=== PATIENT | female | born 1955 | race Caucasian/White ===

== ENCOUNTER 2024-10-17 08:15 | Outpatient (CLI) | payer MEDICARE, SELFPAY ==
--- OUTSIDE RECORDS SUMMARY | 2023-09-07 06:15 | XMS_ITS ---
Author Organization Ash Address 1210 [facility] [address] [place] [id number] Care Team Providers Care Insurance Claims Processor Name Role Phone Paul Whitman Unavailable [phone] Allergies No Known Allergies REASON FOR VISIT refills, to get established Medications Medication SIG (Take, Route, Frequency, Duration) Notes Start Date End Date Status Atorvastatin Calcium 40 MG 1 tablet Oral ly Once a day Active Losartan Potassium-HCTZ 50-12.5 MG 1 tablet Orally Once a day Active Omeprazole 20 MG 1 capsule 30 minutes before morning meal Orally Once a day as needed Active Problems Problem Type SNOMED Code ICD Code Onset Dates Problem Status W/U Status Risk Notes Problem Essential hypertension (18222359) Essential hypertension (I10) Active confirmed Problem Mixed hyperlipidemia (476532872) Mixed hyperlipidemia (E78.2) Active confirmed Problem Gastroesophageal reflux disease (193761944) Gastroesophageal reflux disease, unspecified whether esophagitis present (K21.9) Active confirmed Vital Signs Weight 161.8 lbs 09/07/2023 Blood pressure systolic 142 mm Hg 09/07/19 24 Blood pressure diastolic 80 mm Hg 024 Heart Rate 70 /min 09/07/2023 Height 63 in 09/07/2023 BMI 28.66 kg/m2 09/07/2023 Encounters Encounter Location Date Provider Diagnosis [place] [address] [place] [address] [place] [id number] 09/07/2023 Paul Whitman Essential hypertensi on I10 ; Mixed hyperlipidemia E78.2 and Gastroesophageal reflux disease, unspecified whether esophagitis present K21.9 Assessments Encounter Date Diagnosis (ICD Code) Assessment Notes Treatment Notes Treatment Clinical Notes Section Notes 09/07/2023 Essential hypertension (ICD-10 - I10) 09/07/2023 Mixed hyperlipidemia (ICD-10 - E78.2) 09/07/2023 Gastroesophageal reflux disease, unspecified whether esophagitis present (ICD-10 - K21.9) 09/07/2023 Other Patient needs fasting labs in the next few weeks: CMP, TSH w/ reflex, Lipid, Urine Microalbumin Plan Of Treatment Medication Medication Name Sig Start Date Stop Date Notes Atorvastatin Calcium 40 MG 1 tablet Orally Once a day Losartan Potassium-HCTZ 50-1 2.5 MG 1 tablet Orally Once a day Omeprazole 20 MG 1 capsule 30 minutes before morning meal Orally Once a day as needed Treatment Notes Assessment Notes Other Patient needs fastin g labs in the next few weeks: CMP, TSH w/ reflex, Lipid, Urine Microalbumin Next Appt Details Follow Up: 6 Months, Reason: Provider Name:Paul Hanley ry, 01/27/2025 10:00:00 AM, [address] [place] [facility] 36 [facility], [address] , [place], [place], [id number], Progress Notes * DICK MERIDAOB: [birth year] (69 yo F)Acc No.[id number]:09/07/2023 Progress Notes Patient: Kizzy HAINES BEATRICE Provider: Minnie Whitman M.D. :1955 A ge:68 Y S ex:Female Date:09/07/2023 Address:[address] [place], [place] [id number] Subjective: * Chief Complaints: * 1 . Refills, to get established. * HPI: H PI: 68 year old female presents with c/o Patient is here today for?Pt here to establish care, previously seen by Dr. Huber in [facility] in [place], [place]. Pt states she is doing well and does not have any concerns today. * ROS: D ERMATOLOGY: no R zackery. n o H armida. G ASTROENTEROLOGY: no N ausea. n o V omiting. U ROLOGY: no D ifficulty urinating. n o B lood in urine. * Medical History: H ypertension, Hyperlipidemia, Esophageal reflux. * Surgical History: T onsilectomy 1962, colonoscopy 2022. * Hospitalization/Major Diagno stic Procedure: D enies Past Hospitalization. * Family History: F ather: , diagnosed with Cancer. M other: , diagnosed with Hypertension.?2 brother(s) . 1 son(s) , 1 daughter(s) . . * Social History: C URRENT TOBACCO USE: No . C affeine: yes, frequency: once daily. Alcohol: no. * Medications: T aking Omeprazole 20 MG Capsule Delayed Release 1 capsule 30 minutes before morning meal Orally Once a day , Taking Atorvastatin Calcium 40 MG Tablet 1 tablet Orally Once a day , Taking Losartan Potassium-HCTZ 50-12.5 MG Tablet 1 tablet Orally Once a day , Medication List reviewed and reconciled with the patient * Allergies: N .K.D.A. Objective: * Vitals: W t:161.8, Temp:97.8, BP:142/80, HR:70, Nurse:ying, Ht:63, BMI:28.66. * Examination: G eneral Examination: General Appearance: N AD. H EENT: u nremarkable.?Oral cavity: n o lesions, mucosa moist and WNL, no erythema. N lamar: s upple, no lymphadenopathy. H eart: R SR. L ungs: c lear to auscultation. N eurologic Exam: Intact, gait normal. S kin: n ormal, no rash. P eripheral pulses: n ormal (2+) bilaterally. E xtremities: n o leg edema. Assessment: * Assessment: 1. E ssential hypertension - I10 (Primary) 2 . M ixed hyperlipidemia - E78.2 3 . G astroesophageal reflux disease, unspecified whether esophagitis present - K21.9 Plan: * Treatment: 2. M ixed hyperlipidemia Continue Atorvastatin Calcium Tablet, 40 MG, 1 tablet, Orally, Once a day. 3. G astroesophageal reflux disease, unspecified whether esophagitis present Decrease Omeprazole Capsule Delayed Release, 20 MG, 1 capsule 30 minutes before morning meal, Orally, Once a day as needed. 4. O thers Notes: Patient needs fasting labs in the next few weeks: CMP, TSH w/ reflex, Lipid, Urine Microalbumin * Follow Up: 6 Months * Images: Billing Information: * Visit Code: 39191 Office Visit, New Pt., Level 3. * Procedure Codes: * Electronic signature of Peggy Whitman MD on 10/17/2024 at 08:36 AM EDT Sign off status: Pending * Provider: Minnie Whitman M.D. Date: 0 09/07/2023 Generated for Umeshi ng/Janelg/eTransmitting on: 0 10/17/2024 08:36 AM EDT History and Physical Notes * HPI (History of Present Illness) Category Sub-Category Detail Notes Category Not es HPI Patient is here today for Pt her e to establish care, previously seen by Dr. Huber in [facility] in [place], [place]. Pt states she is doing well and does not have any concerns today Examination Category Sub-Category Detail Notes Category Not es General Examination HEENT: unremarkable Heart: RSR Lungs: clear to auscultatio n Extremities: no leg edema General Appearance: NAD Skin: normal, no rash Neurologic Exam: Intact, gait normal Neck: supple, no lymphaden opathy Oral cavity: no lesions, mucosa m oist and WNL, no erythema Peripheral pulses: normal (2+) bilatera lly
--- OUTSIDE RECORDS SUMMARY | 2023-09-15 06:00 | XMS_ITS ---
[facility] Organization [facility] Address [address] [facility] [address] [place] [id number] Care Team Providers Care Facility Administrator Name Role Phone Paul Whitman Unavailable [phone] Results Component Value Reference Range Notes P-Comprehensive Metabolic Pa ashlee (CMP) Reviewed date:09/20/2023 09:26:44 AM Interpretation:alk phos 172 Performing Lab: Notes/Report: Test performed by [employer] [address] [place], [place] [address] [place] , [address], [place] [address] Isiah Patel MD, Agricultural Equipment Mechanic CLIA: [id number] Sodium 137 135-145 mmol/L Potassium 4.1 3.5-5.3 mmol/L Chloride 100 97-108 mmol/L CO2 27 22-32 mmol/L Glucose 98 65-99 mg/dL BUN 18 8-23 mg/dL Creatinine 0.94 0.50-1.00 mg/dL Calcium 9.6 8.6-10.4 mg/dL eGFR by Creatinine 66 >59 mL/min/1.73m2 Protein 6.8 6.0-8.3 g/dL Albumin 4.4 3.5-5.3 g/dL Alkaline Phosphatase 172 35-121 IU/L ALT (SGPT) 19 <5-47 IU/L AST (SGOT) 23 <5-40 IU/L Bilirubin, Total 0.6 <0.2-1.2 mg/dL A/G Ratio 1.8 1.1-2.5 mg/dL P-Lipid Panel Reviewed date:09/20/2023 09:26:44 AM Interpretation:Normal Performing Lab: Notes/Report: Test performed by [employer] [address] [place] [address] , [address], [place] [address] Isiah Patel MD, Agricultural Equipment Mechanic CLIA: [id number] Cholesterol 153 <200 mg/dL Triglycerides 139 <150 mg/dL HDL Cholesterol 43 >39 mg/dL Cholesterol / HDL Ratio 3.56 0.00-4.44 Ratio Non-HDL Cholesterol 110 <130 mg/dL LDL Cholesterol (Calculation) 82 <130 mg/dL LDL Cholesterol Levels* Less than 100 mg/dL Optimal 100 to 129 mg/dL Near Optimal/ Above Optimal 130 to 159 mg/dL Borderline High 160 to 189 mg/dL High 190 mg/dL and above Very High * Categories as recommended by the 2004 ATPIII guidelines LDL/HDL Ratio 1.9 <3.3 Ratio LDL Cholesterol Patient History Test Date: 09/15/2023 LDL Results: 82 Units: mg/dL % Change: - P-TSH reflex to FT4 Reviewed date:09/20/2023 09:26:44 AM Interpretation:Normal Performing Lab: Notes/Report: Test performed by [employer], [place] [id number] [facility] , [address], [place] [address] Isiah Patel MD, Agricultural Equipment Mechanic CLIA: [id number] TSH reflex to FT4 2.02 0.43-5.25 mU/L P-Microalbumin/Creatinine, R andom Urine Sample Reviewed date:09/20/2023 09:26:45 AM Interpretation:satisfactory Performing Lab: Notes/Report: Test performed by [employer], [address] , [address], [place] [address] Isiah Patel MD, Agricultural Equipment Mechanic CLIA: [id number] Albumin/Creatinine Ratio, Urine See Comment 0-30 ug/mg Unable to calculate Urine Albumin/Creatinine Ratio when urine creatinine or urine albumin fall outside established reportable range. Microalbumin, Urine, Random <0.3 Creatinine, Urine 13.4 REASON FOR VISIT blood work Medications Medication SIG (Take, Route, Frequency, Duration) Notes Start Date End Date Status Omeprazole 20 MG 1 capsule 30 minutes before morning meal Orally Once a day as needed Active Atorvastatin Calcium 40 MG 1 tablet Oral ly Once a day Active Losartan Potassium-HCTZ 50-12.5 MG 1 tablet Orally Once a day Active Encounters Encounter Location Date Provider Diagnosis [facility] [address] [place], [place] [id number] 09/15/2023 Paul Whitman Essential hypertensi on I10 and Mixed hyperlipidemia E78.2 Assessments Encounter Date Diagnosis (ICD Code) Assessment Notes Treatment Notes Treatment Clinical Notes Section Notes 09/15/2023 Essential hypertension (ICD-10 - I10) 09/15/2023 Mixed hyperlipidemia (ICD-10 - E78.2) Plan Of Treatment Next Appt Details Provider Name:Paul Hanley ry, 01/27/2025 10:00:00 AM, [address], [address], [place], [place], [id number], Progress Notes * DICK MERIDAOB: [birth year] (69 yo F)Acc No.[id number]:09/15/2023 Patient: Kizzy BEATRICE HAINES Provider: Minnie Whitman M.D. :1955 A ge:68 Y S ex:Female Date:09/15/2023 Address:[facility] [place] [facility] Subjective: * Chief Complaints: * 1 . Blood work. * Medical History: * Medications: T aking Losartan Potassium-HCTZ 50-12.5 MG Tablet 1 tablet Orally Once a day , Taking Atorvastatin Calcium 40 MG Tablet 1 tablet Orally Once a day , Taking Omeprazole 20 MG Capsule Delayed Release 1 capsule 30 minutes before morning meal Orally Once a day as needed , Medication List reviewed and reconciled with the patient Objective: * Vitals: Assessment: * Assessment: 1. E ssential hypertension - I10 (Primary) 2 . M ixed hyperlipidemia - E78.2 Plan: * Treatment: Value Reference Range A /G Ratio 1.8 1.1-2.5 - mg/dL * A lbumin 4.4 3.5-5.3 - g/dL * A lkaline Phosphatase 172 H 35-121 - IU/L * A LT (SGPT) 19 <5-47 - IU/L * A ST (SGOT) 23 <5-40 - IU/L * B ilirubin, Total 0.6 <0.2-1.2 - mg/dL * B UN 18 8-23 - mg/dL * C alcium 9.6 8.6-10.4 - mg/dL * C hloride 100 97-108 - mmol/L * C O2 27 22-32 - mmol/L * C reatinine 0.94 0.50-1.00 - mg/dL * G lucose 98 65-99 - mg/dL * P otassium 4.1 3.5-5.3 - mmol/L * S odium 137 135-145 - mmol/L * P rotein 6.8 6.0-8.3 - g/dL * e GFR by Creatinine 66 >59 - mL/min/1.73m2 * Diana Wolfe 09/20/2023 9:26:3 9 AM >See phone encounter ?LAB: P-TSH reflex to FT4 (Collection Date & Time - 09/15/2023 09:10 AM)? Normal* Value Reference Range T SH reflex to FT4 2.02 0.43-5.25 - mU/L * Diana Wolfe 09/20/2023 9:26:3 9 AM >See phone encounter ?LAB: P-Microalbumin/Creatinine, Random Urine Sample (Collection Date & Time - 09/15/2023 09:10 AM)?satisfactory* Value Reference Range A lbumin/Creatinine Ratio, Urine See Comment L 0-30 - ug /mg * C reatinine, Urine 13.4 - mg/dL * M icroalbumin, Urine, Random <0.3 - mg/dL * Diana Wolfe 09/20/2023 9:26:3 9 AM >See phone encounter 2.?Mixed hyperlipidemia?LAB: P-Lipid Panel (Collection Date & Time - 09/15/2023 09:10 AM)?Normal* Value Reference Range C holesterol / HDL Ratio 3.56 0.00-4.44 - Ratio * C holesterol 153 <200 - mg/dL * H DL Cholesterol 43 >39 - mg/dL * L DL Cholesterol (Calculation) 82 <130 - mg/d L * L DL/HDL Ratio 1.9 <3.3 - Ratio * N on-HDL Cholesterol 110 <130 - mg/dL * T riglycerides 139 <150 - mg/dL * Diana Wolfe 09/20/2023 9:26:3 9 AM >See phone encounter * Images: Billing Information: * Visit Code: * Procedure Codes: * Electronic signature of Peggy Whitman MD on 10/17/2024 at 08:35 AM EDT Sign off status: Pending * Provider: Minnie Whitman M.D. Date: 09/15/2023 Generated for Jazmyn ballesteros/Shanda/eTreema on: 10/17/2024 08:35 AM EDT
--- OUTSIDE RECORDS SUMMARY | 2024-08-26 06:00 | XMS_ITS ---
Author Organization [facility] Address 1210 [facility] [address] [place] [id number] Care Team Providers Care Coil Connector Name Role Phone Paul Whitman Unavailable [phone] Allergies No Known Allergies Results Component Value Reference Range Notes CBC Venipuncture (in house) Reviewed date:08/28/2024 12:39:04 PM Interpretation:not performed Performing Lab: Notes/Report: not performed REASON FOR VISIT checkup Medications Medication SIG (Take, Route, Frequency, Duration) Notes Start Date End Date Status Atorvastatin Calcium 40 MG TAKE 1 TABLET BY MOUTH ONCE DAILY Active Losartan Potassium-HCTZ 50-12.5 MG TAKE 1 TABLET BY MOUTH ONCE DAILY Active Omeprazole 20 MG 1 capsule 1/2 to 1 h our before morning meal Orally Once a day Active Vital Signs Weight 167 lbs 08/26/2024 Blood pressure systolic 140 mm Hg 08/27/19 25 Blood pressure diastolic 80 mm Hg 025 Heart Rate 74 /min 08/26/2024 Height 63 in 08/26/2024 BMI 29.58 kg/m2 08/26/2024 Encounters Encounter Location Date Provider Diagnosis [facility] [address] [place] [address] [place] [id number] 08/26/2024 Paul Whitman Essential hypertensi on I10 ; Mixed hyperlipidemia E78.2 ; Gastroesophageal reflux disease, unspecified whether esophagitis present K21.9 ; middle or intermediate school principal use of drug Z79.899 and BMI 29.0-29.9,adult Z68.29 Assessments Encounter Date Diagnosis (ICD Code) Assessment Notes Treatment Notes Treatment Clinical Notes Section Notes 08/26/2024 Essential hypertension (ICD-10 - I10) 08/26/2024 Mixed hyperlipidemia (ICD-10 - E78.2) 08/26/2024 Gastroesophageal reflux disease, unspecified whether esophagitis present (ICD-10 - K21.9) 08/26/2024 middle or intermediate school principal use of drug (ICD-10 - Z79.899) 08/26/2024 BMI 29.0-29.9,adult (ICD-10 - Z68.29) Plan Of Treatment Medication Medication Name Sig Start Date Stop Date Notes Atorvastatin Calcium 40 MG TAKE 1 TABLET BY MOUTH ONCE DAILY Losartan Potassium-HCTZ 50-1 2.5 MG TAKE 1 TABLET BY MOUTH ONCE DAILY Omeprazole 20 MG 1 capsule 1/2 to 1 h our before morning meal Orally Once a day Pending Test Test Name Order Date P-Comprehensive Metabolic Panel (CMP) P-Lipid Panel 08/26/2024 P-TSH reflex to FT4 08/26/2024 P-Microalbumin/Creatinine, Random Urine Sample 08/26/2024 Next Appt Details Follow Up: 5 months, Reason: Provider Name:Paul Hanley , 01/27/2025 10:00:00 AM, [facility] 36 [facility], [address] , [place], [place], [id number], Progress Notes * YARI MERIDAEDOB: [birth year] (69 yo F)Acc No.[id number]:08/26/2024 Progress Notes Patient: BEATRICE MOTTA Provider: Minnie Whitman M.D. :1955 A ge:69 Y S ex:Female Date:08/26/2024 Address:[address] [place] [address] [facility] Subjective: * Chief Complaints: * 1 . Checkup. * HPI: C ardiology: 69 year old female presents with c/o Blood Pressure Elevated?Pt here to f/u on hypertension. Pt states she is doing well and does not have any concerns. c/o Hyperlipidemia P t is not fasting today. * ROS: D ERMATOLOGY: no R zackery. n o H armida. G ASTROENTEROLOGY: no N ausea. n o V omiting. U ROLOGY: no D ifficulty urinating. n o B lood in urine. * Medical History: H ypertension, Hyperlipidemia, Esophageal reflux. * Surgical History: T onsilectomy 1962, Colonoscopy 2022. * Hospitalization/Major Diagno stic Procedure: D enies Past Hospitalization. * Family History: F ather: , diagnosed with Cancer. M other: , diagnosed with Hypertension.?2 brother(s) . 1 son(s) , 1 daughter(s) . . * Social History: C URRENT TOBACCO USE: No . C affeine: yes, frequency: once daily. Alcohol: no. * Medications: T aking Omeprazole 20 MG Capsule Delayed Release 1 capsule 1/2 to 1 hour before morning meal Orally Once a day , Taking Losartan Potassium-HCTZ 50-12.5 MG Tablet TAKE 1 TABLET BY MOUTH ONCE DAILY , Taking Atorvastatin Calcium 40 MG Tablet TAKE 1 TABLET BY MOUTH ONCE DAILY , Medication List reviewed and reconciled with the patient * Allergies: N .K.D.A. Objective: * Vitals: W t: 167, Temp: 97.9, BP: 140/80, HR: 74, Nurse: ying, Ht: 63, BMI:29.58. * Examination: G eneral Examination: General Appearance: N AD. H EENT: u nremarkable.?Oral cavity: n o lesions, mucosa moist and WNL, no erythema. N lamar: s upple, no lymphadenopathy. H eart: R SR. L ungs: c lear to auscultation. S kin: n ormal, no rash. P eripheral pulses: n ormal (2+) bilaterally. E xtremities: n o leg edema.? Assessment: * Assessment: 1. E ssential hypertension - I10 (Primary) 2 . M ixed hyperlipidemia - E78.2 3 . G astroesophageal reflux disease, unspecified whether esophagitis present - K21.9 4 . L eitan term use of drug - Z79.899 5 . B MT 29.0-29.9,adult - Z68.29 Plan: * Treatment: 2. M ixed hyperlipidemia Continue Atorvastatin Calcium Tablet, 40 MG, TAKE 1 TABLET BY MOUTH ONCE DAILY. L AB: P-Comprehensive Metabolic Panel (CMP) L AB: P-Lipid Panel L AB: P-TSH reflex to FT4 3. G astroesophageal reflux disease, unspecified whether esophagitis present Continue Omeprazole Capsule Delayed Release, 20 MG, 1 capsule 1/2 to 1 hour before morning meal, Orally, Once a day. 4. L eitan term use of drug L AB: CBC Venipuncture (in house) (Collection Date & Time - 08/28/2024) n ot performed * Procedure Codes: G 2211 Complex e/m visit add on, G8420 BMI<30 AND >=22 CALC & DOCU, 1036F TOBACCO NON-USER, G8950 PREHTN/HTN BP DOC INDCD F/U DOC, G8753 MOST RECENT SYSTOLIC BP >= 140MM HG, G8754 MOST RECENT DIASTOLIC BP < 90MM HG * Follow Up: 5 months * Images: Billing Information: * Visit Code: 84937 Office Visit, Est Pt., Level 4. * Procedure Codes: G2211 Complex e/m visit add on. G8420 BMI<30 AND >=22 CALC & DOCU. 1036F TOBACCO NON-USER. G8950 PREHTN/HTN BP DOC INDCD F/U DOC. G8753 MOST RECENT SYSTOLIC BP >= 140MM HG. G8754 MOST RECENT DIASTOLIC BP < 90MM HG. * Electronic signature of Peggy Whitman MD on 10/17/2024 at 08:35 AM EDT Sign off status: Pending * Provider: Minnie Whitman M.D. Date: 0 08/26/2024 Generated for Jazmyn ballesteros/Shanda/eTkamleshitting on: 0 10/17/2024 08:35 AM EDT History and Physical Notes * HPI (History of Present Illness) Category Sub-Category Detail Notes Category Not es Cardiology Blood Pressure Elevated Pt here to f/u on hypertension. Pt states she is doing well and does not have any concerns Hyperlipidemia Pt is not fasting to day Examination Category Sub-Category Detail Notes Category Not es General Examination HEENT: unremarkable Heart: RSR Lungs: clear to auscultatio n Extremities: no leg edema General Appearance: NAD Skin: normal, no rash Neck: supple, no lymphaden opathy Oral cavity: no lesions, mucosa m oist and WNL, no erythema Peripheral pulses: normal (2+) bilatera lly
--- OUTSIDE RECORDS SUMMARY | 2024-09-10 07:48 | XMS_ITS ---
Author Organization [place] Address 1210 [facility] 36 [facility] [address] [place] [id number] Care Team Providers Care Irrigating Pump Operator Name Role Phone Paul Whitman Unavailable [phone] REASON FOR VISIT due dexa, mary carmen, col Encounters Encounter Location Date Provider Diagnosis [place] [address] [facility] [address] [place] [id number] 09/10/2024 Paul Whitman Encounter for screen ing for malignant neoplasm of breast Z12.31 and Encounter for screening for osteoporosis Z13.820 Assessments Encounter Date Diagnosis (ICD Code) Assessment Notes Treatment Notes Treatment Clinical Notes Section Notes 09/10/2024 Encounter for screening for malignant neoplasm of breast (ICD-10 - Z12.31) 09/10/2024 Encounter for screening for osteoporosis (ICD-10 - Z13.820) Plan Of Treatment Pending Test Test Name Order Date Mammogram 09/10/2024 Next Appt Details Provider Name:Paul Hanley ry, 01/27/2025 10:00:00 AM, 1210 [facility] 36 [facility], [address], [place], [id number], Progress Notes * YARI MERIDAEDOB: [birth year] (69 yo F)Acc No.[id number]:09/10/2024 Patient: Kizzy ZAKI BEATRICE :1955 A ge:69 Y S ex:Female Address:[place], [address] Subjective: * Chief Complaints: * D ue dexa, mary carmen, col * Medical History: * Surgical History: * Hospitalization/Major Diagno stic Procedure: * Medications: Objective: * Vitals: * Physical Examination: Assessment: * Assessment: 1. E ncounter for screening for malignant neoplasm of breast - Z12.31 (Primary) ?2. E ncounter for screening for osteoporosis - Z13.820 Plan: * Treatment: 2.?Encounter for screening for osteoporosis?Imaging: Bone density* Nasrin Munoz 09/20/2024 02:37 :01 PM EDT >sent to [facility] for referral to [facility] * Procedure Codes: * true * Date: Generated for Jazmyn ballesteros/Shanda/eThernansmitting on: 0 10/17/2024 08:36 AM EDT
--- NOTE | 2024-10-17 08:20 | XR_ITS ---
FINAL REPORT CLINICAL HISTORY: SCREENING COMPARISON: None FINDINGS: Using L1-4, the bone mineral density of the spine is 1.138 g/cm2, corresponding to T-score of 0.8, within normal limits. Using the left hip, the bone mineral density of the femoral neck is 0.848 g/cm2, corresponding to a T-score of 0.0, within normal limits. Using the right hip, the bone mineral density of the femoral neck is 0.844 g/cm2, corresponding to a T-score of 0.0, within normal limits. FRAX not reported because all T-scores at or above -1.0. NOTE: T-score: Standard deviation compared with peak bone mass of young adult mean. *Following the recommendations of the International Society of Bone densitometry, classification of hip BMD is based on the lower of two T-scores; total hip or femoral neck. IMPRESSION: Normal bone mineral density of the lumbar spine and hips. Reviewed, Interpreted and Dictated by Chemo Almanzar MD Transcribed by Kathy Calderón Authenticated and [facility]
--- NOTE | 2024-10-17 08:20 | MM_ITS ---
PROCEDURE INFORMATION: Exam: MG Bilateral Screening 3D Mammography Exam date and time: 10/17/2024 8:35 AM Age: 69 years old Clinical indication: Screening examination TECHNIQUE: Imaging protocol: Bilateral Screening tomosynthesis and 2D mammography including computer-aided detection (CAD) when performed. COMPARISON: 1. MG MM SCREENING KRYSTLE BILATERAL 07/27/2023 1:25 PM 2. MG MM SCREENING KRYSTLE BILATERAL 09/27/2021 9:53 AM FINDINGS: MAMMOGRAPHY: Breast composition: There are scattered areas of fibroglandular density. Mass: None. Architectural distortion: None. Calcifications: No suspicious calcifications. Asymmetric density: None. Skin thickening: None. Axillary adenopathy: None. IMPRESSION: No mammographic evidence of malignancy. Annual screening is recommended unless otherwise clinically indicated. ASSESSMENT: BI-RADS Category 1: Negative.
--- OUTSIDE RECORDS SUMMARY | 2024-10-17 08:36 | XMS_ITS | Patient Health Record ---
Author Organization [facility] Address [address] [facility] [address] [place] [id number] Care Team Providers Care [employer]ic Name Role Phone [place], Paul Unavailable [phone] Allergies No Known Allergies Results Component Value Reference Range Notes CBC Venipuncture (in house) Reviewed date:08/28/2024 12:39:04 PM Interpretation:not performed Performing Lab: Notes/Report: not performed Reason For Referral No Information Medications Medication SIG (Take, Route, Frequency, Duration) Notes Start Date End Date Status Atorvastatin Calcium 40 MG TAKE 1 TABLET BY MOUTH ONCE DAILY Active Losartan Potassium-HCTZ 50-12.5 MG TAKE 1 TABLET BY MOUTH ONCE DAILY Active Omeprazole 20 MG 1 capsule 1/2 to 1 h our before morning meal Orally Once a day Active Problems Problem Type SNOMED Code ICD Code Onset Dates Problem Status W/U Status Risk Notes Problem Essential hypertension (38908718) Essential hypertension (I10) Active confirmed Problem Mixed hyperlipidemia (589508322) Mixed hyperlipidemia (E78.2) Active confirmed Problem Gastroesophageal reflux disease (982289850) Gastroesophageal reflux disease, unspecified whether esophagitis present (K21.9) Active confirmed Vital Signs Heart Rate 74 /min 08/26/2024 Blood pressure diastolic 80 mm Hg 08/26/2024 Height 63 in 08/26/2024 Blood pressure systolic 140 mm Hg 08/26/2024 Weight 167 lbs 08/26/2024 BMI 29.58 kg/m2 08/26/2024 Encounters Encounter Location Date Provider Diagnosis [facility] [address] [place] [id number] 08/26/2024 Paul Whitman Essential hypertensi on I10 ; Mixed hyperlipidemia E78.2 ; Gastroesophageal reflux disease, unspecified whether esophagitis present K21.9 ; group home use of drug Z79.899 and BMI 29.0-29.9,adult Z68.29 [facility] [address] [facility] [address] [place] [id number] 05/02/2024 Paul Whitman Gastroesophageal ref lux disease, unspecified whether esophagitis present K21.9 [facility] [address] [facility] [address] [place] [id number] 09/10/2024 Paul Whitman Encounter for screen ing for malignant neoplasm of breast Z12.31 and Encounter for screening for osteoporosis Z13.820 Assessments Encounter Date Diagnosis (ICD Code) Assessment Notes Treatment Notes Treatment Clinical Notes Section Notes 05/02/2024 Gastroesophageal reflux disease, unspecified whether esophagitis present (ICD-10 - K21.9) 08/26/2024 Essential hypertension (ICD-10 - I10) 08/26/2024 Mixed hyperlipidemia (ICD-10 - E78.2) 09/10/2024 Encounter for screening for osteoporosis (ICD-10 - Z13.820) 09/10/2024 Encounter for screening for malignant neoplasm of breast (ICD-10 - Z12.31) 08/26/2024 Gastroesophageal reflux disease, unspecified whether esophagitis present (ICD-10 - K21.9) 08/26/2024 buttermaker use of drug (ICD-10 - Z79.899) 08/26/2024 BMI 29.0-29.9,adult (ICD-10 - Z68.29) Plan Of Treatment Pending Test Test Name Order Date Bone density 09/20/2024 Mammogram 09/10/2024 P-Comprehensive Metabolic Panel (CMP) P-Lipid Panel 08/26/2024 P-TSH reflex to FT4 08/26/2024 P-Microalbumin/Creatinine, Random Urine Sample 08/26/2024 Next Appt Details Provider Name:Paul Hanley , 01/27/2025 10:00:00 AM, [address], [address], [place], [id number], Insurance Providers Payer Name Payer Address Payer Phone Subscriber Number Group Number Insured Name Patient Relationship to Insured Coverage Start Date Coverage End Date [employer] [address] [place] [address] [phone] [id number] BEATRICE MERIDA Self - patient is the insured Medical (General) History Medical History History ICD Code Hypertension Hyperlipidemia Esophageal reflux Surgical History Surgery Date(Month/Year) Tonsilectomy 1962 Colonoscopy 2022
== END 2024-10-17 23:59 | disposition home or self-care (01) ==
LOC: RAD 08:16
PROVIDERS: PCP Family Medicine; Visit Provider Family Medicine
DX: Z12.31 Encounter for screening mammogram for malignant neoplasm of breast (principal); R92.323 Mammographic fibroglandular density, bilateral breasts; Z13.820 Encounter for screening for osteoporosis; Z78.0 Asymptomatic menopausal state
CPT/HCPCS: 77063; 77067; 77080